=== PATIENT | female | born 1980 | race Caucasian/White ===

== ENCOUNTER 2019-03-26 08:49 | Inpatient (IN) | payer OTHER ==
--- NOTE | 2019-03-26 09:31 | ED ---
Psych HPI - General Source: patient, police, RN notes reviewed Mode of arrival: ambulatory Limitations: no limitations <Kendall Benson - Last Filed: 03/26/19 14:49> <Baljit Potts - Last Filed: 03/26/19 15:25> - General Chief Complaint: Psychiatric Symptoms Stated Complaint: EPS eval Time Seen by Provider: 03/26/19 09:10 - History of Present Illness Initial Comments: 2-year-old female presents emergency Department with chief complaint of needing psychiatric evaluation. Patient is brought to emergency department by [facility]. Patient has been having hallucinations, bizarre behavior in shelter was attempted to have a eval by [facility] in which she was petition. Patient states she has no official diagnosis of psychiatric disorders. Patient states that she does have a history of drug abuse. Patient denies any current medications patient has no physical complaints. (Kendall Benson) - Related Data Home Medications Medication Instructions Recorded Confirmed Lisinopril 20 mg PO DAILY 03/26/19 03/26/19 Allergies Allergy/AdvReac Type Severity Reaction Status Date / Time No Known Allergies Allergy Verified 03/26/19 10:12 Review of Systems ROS Other: All systems not noted in ROS Statement are negative. <Kendall Benson - Last Filed: 03/26/19 14:49> ROS Other: All systems not noted in ROS Statement are negative. <Baljit Potts - Last Filed: 03/26/19 15:25> ROS Statement: Those systems with pertinent positive or pertinent negative responses have been documented in the HPI. Past Medical History Past Medical History: No Reported History History of Any Multi-Drug Resistant Organisms: None Reported Past Surgical History: No Surgical Hx Reported Past Psychological History: No Psychological Hx Reported Smoking Status: Former smoker Past Alcohol Use History: None Reported <Kendall Benson - Last Filed: 03/26/19 14:49> General Exam General appearance: alert, in no apparent distress Head exam: Present: atraumatic, normocephalic, normal inspection Eye exam: Present: normal appearance, PERRL, EOMI. Absent: scleral icterus, conjunctival injection, periorbital swelling ENT exam: Present: normal exam, normal oropharynx, mucous membranes moist Neck exam: Present: normal inspection, full ROM. Absent: tenderness, meningismus, lymphadenopathy Respiratory exam: Present: normal lung sounds bilaterally. Absent: respiratory distress, wheezes, rales, rhonchi, stridor Cardiovascular Exam: Present: regular rate, normal rhythm, normal heart sounds. Absent: systolic murmur, diastolic murmur, rubs, gallop, clicks GI/Abdominal exam: Present: soft, normal bowel sounds. Absent: distended, tenderness, guarding, rebound, rigid Extremities exam: Present: normal inspection, full ROM, normal capillary refill. Absent: tenderness, pedal edema, joint swelling, calf tenderness Back exam: Present: normal inspection Neurological exam: Present: alert, oriented X3, CN II-XII intact, reflexes normal. Absent: motor sensory deficit Skin exam: Present: warm, dry, intact, normal color. Absent: rash <Kendall Benson - Last Filed: 03/26/19 14:49> Course <Baljit Potts - Last Filed: 03/26/19 15:25> Vital Signs 03/26/19 09:06 Temperature 97.5 F L Pulse Rate 71 Respiratory 16 Rate Blood Pressure 159/91 O2 Sat by Pulse 97 Oximetry - Reevaluation(s) Reevaluation #1: 03/26/19 15:25 I did fill a clinical certification the patient. He does demonstrate evidence of psychosis (Baljit Potts) Medical Decision Making - Lab Data Result diagrams: 03/26/19 10:52 03/26/19 10:52 <Kendall Benson - Last Filed: 03/26/19 14:49> - Lab Data Result diagrams: 03/26/19 10:52 03/26/19 10:52 <Baljit Potts - Last Filed: 03/26/19 15:25> - Medical Decision Making Patient will be admitted for further evaluation and treatment. (Kendall Benson) - Lab Data Lab Results 03/26/19 03/26/19 03/26/19 Range/Units 10:25 10:25 10:52 WBC 8.4 (3.8-10.6) k/uL RBC 4.56 (3.80-5.40) m/uL Hgb 13.4 (11.4-16.0) gm/dL Hct 42.6 (34.0-46.0) % MCV 93.4 (80.0-100.0) fL MCH 29.5 (25.0-35.0) pg MCHC 31.5 (31.0-37.0) g/dL RDW 12.9 (11.5-15.5) % Plt Count 234 (150-450) k/uL Neutrophils % 61 % Lymphocytes % 25 % Monocytes % 7 % Eosinophils % 3 % Basophils % 1 % Neutrophils # 5.1 (1.3-7.7) k/uL Lymphocytes # 2.1 (1.0-4.8) k/uL Monocytes # 0.6 (0-1.0) k/uL Eosinophils # 0.2 (0-0.7) k/uL Basophils # 0.0 (0-0.2) k/uL Sodium (137-145) mmol/L Potassium (3.5-5.1) mmol/L Chloride (98-107) mmol/L Carbon Dioxide (22-30) mmol/L Anion Gap mmol/L BUN (7-17) mg/dL Creatinine (0.52-1.04) mg/dL Est GFR (CKD-EPI)AfAm (>60 ml/min/1.73 sqM) Est GFR (CKD-EPI)NonAf (>60 ml/min/1.73 sqM) Glucose (74-99) mg/dL Calcium (8.4-10.2) mg/dL Total Bilirubin (0.2-1.3) mg/dL AST (14-36) U/L ALT (9-52) U/L Alkaline Phosphatase (38-126) U/L Ammonia (<30) umol/L Total Protein (6.3-8.2) g/dL Albumin (3.5-5.0) g/dL Urine Color Yellow Urine Appearance Cloudy H (Clear) Urine pH 6.0 (5.0-8.0) Ur Specific [place] 1.021 (1.001-1.035) Urine Protein Trace H (Negative) Urine Glucose (UA) Negative (Negative) Urine Ketones 2+ H (Negative) Urine Blood Negative (Negative) Urine Nitrite Negative (Negative) Urine Bilirubin Negative (Negative) Urine Urobilinogen 3.0 (<2.0) mg/dL Ur Leukocyte Esterase Large H (Negative) Urine RBC 2 (0-5) /hpf Urine WBC 17 H (0-5) /hpf Ur Squamous Epith Cells 8 H (0-4) /hpf Urine Bacteria Few H (None) /hpf Urine Mucus Few H (None) /hpf Urine HCG, Qual Not Detected (Not Detectd) Urine Opiates Screen Not Detected (NotDetected) Ur Oxycodone Screen Not Detected (NotDetected) Urine Methadone Screen Not Detected (NotDetected) Ur Propoxyphene Screen Not Detected (NotDetected) Ur Barbiturates Screen Not Detected (NotDetected) U Tricyclic Antidepress Not Detected (NotDetected) Ur Phencyclidine Scrn Not Detected (NotDetected) Ur Amphetamines Screen Not Detected (NotDetected) U Methamphetamines Scrn Not Detected (NotDetected) U Benzodiazepines Scrn Not Detected (NotDetected) Urine Cocaine Screen Not Detected (NotDetected) U Marijuana (THC) Screen Detected H (NotDetected) Serum Alcohol mg/dL 03/26/19 03/26/19 Range/Units 10:52 10:52 WBC (3.8-10.6) k/uL RBC (3.80-5.40) m/uL Hgb (11.4-16.0) gm/dL Hct (34.0-46.0) % MCV (80.0-100.0) fL MCH (25.0-35.0) pg MCHC (31.0-37.0) g/dL RDW (11.5-15.5) % Plt Count (150-450) k/uL Neutrophils % % Lymphocytes % % Monocytes % % Eosinophils % % Basophils % % Neutrophils # (1.3-7.7) k/uL Lymphocytes # (1.0-4.8) k/uL Monocytes # (0-1.0) k/uL Eosinophils # (0-0.7) k/uL Basophils # (0-0.2) k/uL Sodium 136 L (137-145) mmol/L Potassium 3.6 (3.5-5.1) mmol/L Chloride 100 (98-107) mmol/L Carbon Dioxide 23 (22-30) mmol/L Anion Gap 13 mmol/L BUN 16 (7-17) mg/dL Creatinine 0.53 (0.52-1.04) mg/dL Est GFR (CKD-EPI)AfAm >90 (>60 ml/min/1.73 sqM) Est GFR (CKD-EPI)NonAf >90 (>60 ml/min/1.73 sqM) Glucose 120 H (74-99) mg/dL Calcium 9.9 (8.4-10.2) mg/dL Total Bilirubin 0.7 (0.2-1.3) mg/dL AST 42 H (14-36) U/L ALT 42 (9-52) U/L Alkaline Phosphatase 102 (38-126) U/L Ammonia 11 (<30) umol/L Total Protein 7.4 (6.3-8.2) g/dL Albumin 4.4 (3.5-5.0) g/dL Urine Color Urine Appearance (Clear) Urine pH (5.0-8.0) Ur Specific [place] (1.001-1.035) Urine Protein (Negative) Urine Glucose (UA) (Negative) Urine Ketones (Negative) Urine Blood (Negative) Urine Nitrite (Negative) Urine Bilirubin (Negative) Urine Urobilinogen (<2.0) mg/dL Ur Leukocyte Esterase (Negative) Urine RBC (0-5) /hpf Urine WBC (0-5) /hpf Ur Squamous Epith Cells (0-4) /hpf Urine Bacteria (None) /hpf Urine Mucus (None) /hpf Urine HCG, Qual (Not Detectd) Urine Opiates Screen (NotDetected) Ur Oxycodone Screen (NotDetected) Urine Methadone Screen (NotDetected) Ur Propoxyphene Screen (NotDetected) Ur Barbiturates Screen (NotDetected) U Tricyclic Antidepress (NotDetected) Ur Phencyclidine Scrn (NotDetected) Ur Amphetamines Screen (NotDetected) U Methamphetamines Scrn (NotDetected) U Benzodiazepines Scrn (NotDetected) Urine Cocaine Screen (NotDetected) U Marijuana (THC) Screen (NotDetected) Serum Alcohol <10 mg/dL Disposition <Kendall Benson - Last Filed: 03/26/19 14:49> <Baljit Potts - Last Filed: 03/26/19 15:25> Clinical Impression: Psychosis Disposition: ADMITTED IP TO THIS [facility] Condition: Stable
[2019-03-26 11:21] LABS: ALT 42 U/L (9-52); AST 42 U/L (14-36); African American GFR (CKD) >90 (>60 ml/min/1.73 sqM); Albumin 4.4 g/dL (3.5-5.0); Alcohol <10 mg/dL; Alkaline Phosphatase 102 U/L (38-126); Anion Gap 13 mmol/L; Blood Urea Nitrogen 16 mg/dL (7-17); Calcium 9.9 mg/dL (8.4-10.2); Carbon Dioxide 23 mmol/L (22-30); Chloride 100 mmol/L (98-107); Glucose 120 mg/dL (74-99); Potassium 3.6 mmol/L (3.5-5.1); Sodium 136 mmol/L (137-145); Total Bilirubin 0.7 mg/dL (0.2-1.3); Total Protein 7.4 g/dL (6.3-8.2)
--- NOTE | 2019-03-26 11:26 | CT ---
EXAMINATION TYPE: CT brain wo con DATE OF EXAM: 03/26/2019 COMPARISON: None HISTORY: Altered mental status. CT DLP: 1090.4 mGycm. Automated Exposure Control for Dose Reduction was Utilized. TECHNIQUE: CT scan of the head is performed without contrast. FINDINGS: There is no acute intracranial hemorrhage, mass effect, or midline shift identified. The ventricles and sulci are within normal limits in size. The globes are intact and the visualized sin uses are clear. There are cerebral vascular calcifications. Focal low-attenuation present on the righ t may represent a choroidal fissure cyst. There is mild cortical atrophy. IMPRESSION: No acute intracranial hemorrhage, mass effect, or midline shift is seen. Additional find ings above.
[2019-03-26 11:28] LABS: Appearance,Urine Cloudy (Clear); Bacteria,Urine Few /hpf; Bilirubin,Urine Negative (Negative); Blood,Urine Negative (Negative); Color,Urine Yellow; Glucose,Urine (UA) Negative (Negative); Ketones,Urine 2+ (Negative); Leukocyte Esterase,Urine Large (Negative); Mucus,Urine Few /hpf; Nitrite,Urine Negative (Negative); Protein,Urine Trace (Negative); RBC,Urine 2 /hpf (0-5); Specific Gravity,Urine 1.021 (1.001-1.035); Squamous Epithelial Cell,Urine 8 /hpf (0-4)
[2019-03-26 11:45] LABS: Amphetamine Screen,Urine Not Detected (NotDetected); Barbiturate Screen,Urine Not Detected (NotDetected); Benzodiazepines Screen,Urine Not Detected (NotDetected); Cocaine Screen,Urine Not Detected (NotDetected); Methadone Screen, Urine Not Detected (NotDetected); Opiate Screen,Urine Not Detected (NotDetected); Oxycodone Screen, Urine Not Detected (NotDetected); Phencyclidine Screen,Urine Not Detected (NotDetected); Tricyclic Antidepressant,Urine Not Detected (NotDetected); Urn Cannabinoid Scrn Detected (NotDetected)
[2019-03-26 11:54] LABS: Basophils % (A) 1 %; Eosinophils # (A) 0.2 k/uL (0-0.7); Eosinophils % (A) 3 %; HCT 42.6 % (34.0-46.0); HGB 13.4 gm/dL (11.4-16.0); Lymphocytes # (A) 2.1 k/uL (1.0-4.8); Lymphocytes % (A) 25 %; MCH 29.5 pg (25.0-35.0); MCHC 31.5 g/dL (31.0-37.0); MCV 93.4 fL (80.0-100.0); Mean Platelet Volume 7.6; Monocytes # (A) 0.6 k/uL (0-1.0); Monocytes % (A) 7 %; Neutrophils # (A) 5.1 k/uL (1.3-7.7); Neutrophils % (A) 61 %; Platelet Count 234 k/uL (150-450); RBC 4.56 m/uL (3.80-5.40); RDW 12.9 % (11.5-15.5); WBC 8.4 k/uL (3.8-10.6)
[2019-03-26] MEDS ORDERED: IBUPROFEN 600 MG TAB PO STA (14:49)
[2019-03-26] MEDS ORDERED: LORazepam 1 MG TAB PO STA (14:49)
[2019-03-26] MEDS ORDERED: ZIPRASIDONE 20 MG VIAL IM PRN (16:01)
[2019-03-26] MEDS ORDERED: LORazepam 1 MG TAB PO PRN (16:01)
[2019-03-26] MEDS ORDERED: ACETAMINOPHEN TAB 325 MG TAB PO PRN (16:01)
[2019-03-26] MEDS ORDERED: MAG HYDROX/AL HYDROX/SIMETH 30 ML CUP PO PRN (16:01)
[2019-03-26] MEDS ORDERED: MAGNESIUM HYDROXIDE 2,400 MG/10 ML CUP PO PRN (16:01)
[2019-03-26] MEDS ORDERED: LORazepam 2 MG/ML INJ IM PRN (16:03)
[2019-03-26] MEDS: LISINOPRIL 20 MG TAB PO SCH (16:25)
--- NOTE | 2019-03-26 16:57 | P.CON ---
Consult Note - . Consult date: 03/26/19 Assessment/Plan:: This is a 38-year-old female with past medical history of hypertension who was initially admitted to the hospital for psychosis and we will consulted for medical management patient doesn't have any chest pain or shortness of breath doesn't have new complains Patient states that she does have chronic back pain for which she takes ibuprofen and she does have also headaches that for which she takes Excedrin Review of systems and systems has been reviewed all negative and positive findings as per history of present illness Past medical history hypertension Past surgical history none known at this time Social history smokes Family history not known Constitutional: No acute distress, conversant, pleasant Eyes: Anicteric sclerae, moist conjunctiva, no lid-lag PERRLA ENMT: Cranial nerves grossly intact Neck: Supple, FROM, no masses, or JVD No carotid bruits No thyromegaly Lungs: Clear to auscultation Clear to percussion Normal respiratory effort, no accessory muscle use Cardiovascular: Heart regular in rate and rhythm, No murmurs, gallops, or rubs No peripheral edema Abdominal: Soft Nontender, Skin: Normal temperature, tone, Extremities: No digital cyanosis No clubbing Pedal pulses intact and symmetrical Radial pulses intact and symmetrical Normal gait and station No calf tenderness Psychiatric:Alert and oriented to person, place and time Appropriate affect Intact judgement Neuro: No obvious weakness Hypertension resume home medications Chronic back pain okay to start the patient on ibuprofen as needed Chronic headaches okay to start the patient on Excedrin if needed Thank you for the consult
[2019-03-26 16:58] VITALS: BMI 27.4
[2019-03-26] MEDS ORDERED: ASPIRIN-ACET-CAFF 250-250-65MG 1 EACH TAB PO PRN (17:23)
[2019-03-27] MEDS: LISINOPRIL 20 MG TAB PO SCH (07:43)
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
[2019-03-27 12:07] LABS: Hemoglobin A1C 5.4 % (4.0-6.0)
[2019-03-27] MEDS: ASPIRIN-ACET-CAFF 250-250-65MG 1 EACH TAB PO PRN (14:47)
[2019-03-27] MEDS ORDERED: diphenhydrAMINE 50 MG CAP PO STA (23:15)
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
[2019-03-28] MEDS: LISINOPRIL 20 MG TAB PO SCH (08:24)
[2019-03-28] MEDS: ASPIRIN-ACET-CAFF 250-250-65MG 1 EACH TAB PO PRN ×2 (09:06→16:09)
[2019-03-28] MEDS: IBUPROFEN 600 MG TAB PO PRN (12:53)
[2019-03-28] MEDS: hydrOXYzine PAMOATE 25 MG CAP PO PRN (20:25)
[2019-03-29 06:28] VITALS: BP 143/69; PULSE 94; RESP 16; TEMP 97.7
[2019-03-29] MEDS: ASPIRIN-ACET-CAFF 250-250-65MG 1 EACH TAB PO PRN (07:13)
[2019-03-29] MEDS: LISINOPRIL 20 MG TAB PO SCH (08:28)
[2019-03-29] MEDS: hydrOXYzine PAMOATE 25 MG CAP PO PRN (08:30)
--- NOTE | 2019-03-29 11:16 | P.DS ---
Providers Date of admission: 03/26/19 14:53 Expected date of discharge: 03/29/19 Attending physician: Juventino Zepeda Consults: 03/26/19 16:01 Consult Physician Routine Consulting Provider: Emmanuel Encinas Consult Reason/Comments: H&P and medical Do you want consulting provider notified?: Yes Primary care physician: Stated None - Discharge Diagnosis(es) (1) Unspecified psychosis Current Visit: Yes Status: Acute Priority: High (2) Moderate benzodiazepine use disorder Current Visit: Yes Status: Acute Priority: Medium (3) Stimulant use disorder Current Visit: Yes Status: Acute Priority: High (4) Cannabis use disorder, mild, abuse Current Visit: Yes Status: Acute Priority: Low Hospital Course: Brief summary of admission note: This patient is a 38-year-old single female who was admitted to the [facility] health unit from the [facility] due to acute symptoms of psychosis. The patient was noted to be uncooperative she was assumed to be hallucinating and she had urinated on the cell floor. She had demonstrated other bizarre behavior. She was brought to the mental health unit for evaluation and treatment. She was [facility] taken to [facility] on an alleged assault charge. Summary of hospital course: The patient was admitted to the mental health unit voluntarily. We reviewed her presenting symptoms and treatment options. Soon after presenting to the mental health unit the patient had started to reconstitute. On the day of the evaluation she denied having any symptoms of psychosis. She was aware that she may have had some bizarre behavior. She states that she does not remember assaulting anyone other than pushing. She states that she believes that individual was going to harm her family. She states that she had been recently checked out of a home she shared with family members. This was due to the fact that she had taken pills belonging to her brother's girlfriend. She described these pills as medicines that would increase energy. She states that she does have a history of abusing Adderall the past as well as benzodiazepines and she does use cannabis. The patient was seen by internal medicine for routine history and physical exam. Social work met with the patient to complete a psychosocial assessment. She has been attending groups she's demonstrated no agitated behavior or psychosis on the mental health unit. Our assumption at this point is that she experienced substance induced psychosis and that has now resolved. Social work is attempting to arrange a support meeting with family members prior to discharge. Mental status exam: The patient is alert she stressor own clothing. Eye contact is appropriate. Speech is fluent spontaneous nonpressured. She reports no suicidal or homicidal ideation intent or plan. She reports no auditory or visual hallucinations or any specific delusions. She demonstrates no observed evidence of psychosis. She is demonstrating no tangential thinking loose associations or flight of ideas. She does not appear hypomanic or manic currently. Affect is euthymic and appropriately expresses. She remains oriented to person place and date. She demonstrates no verbal or physical aggressiveness she demonstrates no involuntary repetitive movements. She demonstrates future oriented thinking. Impressions 1. Substance-induced psychosis, rule out stimulant-induced psychosis, stimulant use disorder, benzodiazepine use disorder, cannabis use disorder Plan: The patient will be discharged mental health unit today. Social work will attempt to arrange a support meeting with family to determine where the patient will be residing upon discharge. The patient is not interested in participating in inpatient chemical dependency treatment. She is willing to address these issues as an outpatient with mental health clinicians. No medication is prescribed to her at this time. She is instructed to abstain from any use of alcohol marijuana stimulants or illicit drugs as these will precipitate symptoms of psychosis and elevate her safety risk. There is no imminent safety risk at this time she is appropriate for transition to outpatient care. She is instructed to return to the hospital with any acute safety concerns Patient Condition at Discharge: Stable Plan - Discharge Summary Discharge Rx Participant: No New Discharge Prescriptions: Continue Lisinopril 20 mg PO DAILY Discharge Medication List Lisinopril 20 mg PO DAILY 03/26/19 [History] Follow up Appointment(s)/Referral(s): None,Stated [Primary Care Provider] - 1-2 days
[2019-03-29] MEDS: IBUPROFEN 600 MG TAB PO PRN (13:51)
== END 2019-03-29 16:05 | disposition home or self-care (01) | DRG 897 ==
LOC: EC 08:49 → 3MHU 14:53
PROVIDERS: ADMIT Psychiatry & Neurology Psychiatry; ATTEND Psychiatry & Neurology Psychiatry
DX: F13.259 Sedative, hypnotic or anxiolytic dependence with sedative, hypnotic or anxiolytic-induced psychotic disorder, unspecified (principal); F12.159 Cannabis abuse with psychotic disorder, unspecified; F15.159 Other stimulant abuse with stimulant-induced psychotic disorder, unspecified; F41.0 Panic disorder [episodic paroxysmal anxiety]; G89.29 Other chronic pain; I10 Essential (primary) hypertension; M54.9 Dorsalgia, unspecified; R51 Headache; Z79.899 Other long term (current) drug therapy; Z87.891 Personal history of nicotine dependence
CPT/HCPCS: 36415; 70450; 80053; 80061; 80306; 80320; 81001; 81025; 82075; 82140; 83036; 84443; 85025; 87086; 99285